=== PATIENT | female | born 1995 | race Caucasian/White ===

== ENCOUNTER 2025-02-16 18:25 | Emergency (ER) | payer OTHER, SELFPAY ==
[2025-02-16 19:00] VITALS: BP 119/67; PULSE 86; RESP 20; TEMP 36.5; O2SAT 98; BMI 21.5
--- NOTE | 2025-02-16 19:00 | ED.SKABFB ---
HPI - Skin/Abscess/Foreign Bdy General Chief complaint: Skin/Abscess/Foreign Body Stated complaint: forhead injury over right eye Time Seen by Provider: 02/16/25 22:26 History of Present Illness ED Provider: Lionel Nick MD HPI narrative: [age] female healthy with dog bite about 3 hours ago just above the right eyebrow minimal bleeding. The dog is a chordee and is fully vaccinated per the patient's mother at the bedside Related Data Previous Rx's ?Medication ?Instructions ?Recorded amoxicillin 875 mg-potassium 1 tab PO BID 7 days #5 tabs 02/16/25 clavulanate 125 mg tablet Allergies Allergy/AdvReac Type Severity Reaction Status Date / Time No Known Allergies (No Known Allergy Verified 02/16/25 19:02 Allergies*) [facility] Social History Social History Advance Directives: No Advance Directives Information Provided: No Physical Exam Exam: Exam: GENERAL: Well appearing. No apparent distress. Alert. HEAD/NECK: No visual trauma. EYES: Normal to inspection. No conjunctival erythema. No discharge. ENMT: Hearing grossly normal. External nose normal. RESPIRATORY: Respiratory effort normal. CARDIOVASCULAR: Additional details (Grossly well perfused). SKIN: No jaundice. NEUROLOGICAL: Alert. Moving all extremities x4. Additional details (No gross motor deficits. Normal tone. ). PSYCHIATRIC: Alert. Appearance appropriate for situation. Skin/face: See photo below there is a flap-like laceration with nearby abrasions. No deep puncture like wounds. Wound is clean no foreign bodies or dirt Vital Signs: Vital Signs: Last Vital Signs Temp 97.7 F 02/16/25 19:00 Pulse 86 02/16/25 19:00 Resp 20 02/16/25 19:00 BP 119/67 02/16/25 19:00 Pulse Ox 98 02/16/25 19:00 O2 Del Method Room Air 02/16/25 19:00 BMI result Body Mass Index 21.5 Course Course Course Narrative: This is a Rapid Medical Exam performed in triage by Mar Cruz PA-C. Full HPI, ROS and PE to be performed by primary ED provider. 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 Patient UTD on vaccinations. Dof UTD on vaccinations PE: +circular laceration noted to L eyebrow Plan: needs suture repair Medications Administered Discontinued Medications Generic Name Dose Route Start Last Admin Trade Name Nohemi PRN Reason Stop Dose Admin Amoxicillin/Clavulanate Potassium 875 mg 02/16/25 22:55 02/16/25 23:38 Amoxicillin/Potassium Clav 875 Mg Tablet PO 02/16/25 22:56 875 mg ONCE ONE Administration Diphtheria/Tetanus/Acell Pertussis 0.5 ml 02/16/25 22:55 02/16/25 23:37 Diphth,Pertus(Acell),Tet Adult 0.5 Ml Syringe IM 02/16/25 22:56 0.5 ml .ONCE ONE Administration Lidocaine HCl 10 ml 02/16/25 22:50 02/16/25 23:38 Lidocaine Hcl 1 % Mpf 5 Ml Vial INFILTRATI 02/16/25 22:51 10 ml ONCE ONE Administration Medical Decision Making Medical Decision Making MDM Narrative: Medical Decision Making: Facial dog bite. Cosmetic area. Shared decision-making regarding risk and benefit of closing dog bite wound versus secondary intention due to infection risk. Patient prefers closure Antibiotic prophylaxis tetanus follow up Preliminary Favored Differential Diagnosis: [ ] among additional considered etiologies Testing Interpreted Independently: ?See below for details Radiology or Lab testing Results Reviewed: ?See below for details Consults: ?See below for details Independent Historians/External Chart Reviews: ?See below for details Social Determinants of Health Impacting MDM/Planning: ?See below for details Procedures Laceration Laceration 1: Site: face Side (If applicable): right Size (cm): 3 Description: flap Local Anesthetic: lidocaine 1% Amount of anesthesia used (mL): 5 Pre-repair: wound explored and irrigated extensively Skin layer closed with: other (Prolene) Size (cm): 6-0 Number of sutures: 5 Technique: simple, interrupted Subcutaneous layer closed with: vicryl Size: 5-0 Number of sutures: 1 Technique: simple interrupted Discharge Plan Discharge Clinical Impression: Laceration of face, Dog bite Patient Disposition: Home, Self-Care Instructions: Animal Bite (ED), Laceration (ED) Additional Instructions: DISCHARGE DIAGNOSES: Dog bite with flap laceration. Repaired HISTORY OF PRESENTATION: ?Dog bite EMERGENCY DEPARTMENT COURSE,TESTS, TREATMENTS: While in the ED today you had a laceration repair with 1 absorbable deep suture and 5 Prolene sutures on the outside of the skin that need to be removed in about 5-6 days you were given a tetanus shot update which should last 10 years unless you have a dirty wound in the future and you were started on antibiotics DISCHARGE MEDICATIONS: ?Augmentin for 5 days FOLLOW-UP: ?Call your primary or general physician soon as possible to discuss your symptoms, your ED visit and to discuss follow up plans Urgent care in 5-6 days for suture removal and wound check INSTRUCTIONS ?& RETURN PRECAUTIONS: If any symptoms change first call your primary physician, if it is after-hours your primary doctors office should have a provider land economist you can speak with. If the symptoms are severe or very concerning to you then call 911 or return to the ED. Lionel Nick MD Emergency Physician [facility] Prescriptions: New amoxicillin-pot clavulanate 875-125 mg tablet 1 tab PO BID 7 Days Qty: 5 0RF Print Language: Indian
[2025-02-16] MEDS: Diphth,Pertus(ACell),Tet Adult 0.5 ML SYRINGE IM (23:37)
[2025-02-16] MEDS: Lidocaine HCl 1 % MPF 5 ML VIAL 10 ML INFILTRATI (23:38)
[2025-02-16 23:49] VITALS: BP 131/86; PULSE 88; RESP 16; TEMP 36.5; O2SAT 98
--- OUTSIDE RECORDS SUMMARY | 2025-02-17 05:20 | XMS_ITS | Encounter Summary ---
Author Organization [facility] Address [address] [place] [address] Phone Care Team Providers Care Seo Intern Name Role Phone Varsha Peña ACADEMIC SPECIALIST Primary Care Provider Meera kennedy Encounter Details Date Type Department Care Team (Late st Contact Info) Description 09/12/2011 [place] [facility] [place] [address] [place], [place] [phone] Family Medicine, Physician [address] [place] [address] Social History Tobacco Use Types Packs/Day Years Used Date Smoking Tobacco: Never Assessed Comments Unknown Sex and Gender Information Value Date Recorded Sex Assigned at Not on file Legal Sex Female 4:47 PM EDT Gender Identity Not on file Sexual Orientation Not on file documented as of this encounter Plan of Treatment Not on file documented as of this encounter Visit Diagnoses Not on filedocumented in this encounter Care Teams Seo Intern Relationship Specialty Start Date End Date Varsha Peña NP PCP - General 11/08/16 09/04/22 documented as of this encounter
--- OUTSIDE RECORDS SUMMARY | 2025-02-17 05:20 | XMS_ITS | Encounter Summary ---
Author Organization [facility] Address [address] [place] [address] Phone Care Team Providers Care Payroll Machine Operator Name Role Phone Varsha Peña MANAGER MEETING Primary Care Provider Meera kennedy Encounter Details Date Type Department Care Team (Late st Contact Info) Description 11/22/2010 Documentation [facility] [place] Family Medicine [address] [place], [place] [phone] Family Medicine, Physician [address] [place] [address] Social History Tobacco Use Types Packs/Day Years [...] on filedocumented in this encounter Care Teams Payroll Machine Operator Relationship Specialty Start Date End Date Varsha Peña NP PCP - General 11/08/16 09/04/22 documented as of this encounter
--- OUTSIDE RECORDS SUMMARY | 2025-02-17 05:20 | XMS_ITS | Encounter Summary ---
Author Organization [facility] Address [address] [place] [address] Phone Care Team Providers Care Department Sales Manager Name Role Phone Varsha Peña PIPELINER Primary Care Provider Meera kennedy Encounter Details Date Type Department Care Team (Late st Contact Info) Description 10/21/2012 Documentation [facility] [place] Family Medicine [address] [place], [place] [phone] Family Medicine, Physician [address] [place] [address] Social History Tobacco Use Types Packs/Day Years [...] on filedocumented in this encounter Care Teams Department Sales Manager Relationship Specialty Start Date End Date Vrasha Peña NP PCP - General 11/08/16 09/04/22 documented as of this encounter
--- OUTSIDE RECORDS SUMMARY | 2025-02-17 05:20 | XMS_ITS | Encounter Summary ---
Author Organization [facility] Address [address] [place] [address] Phone Care Team Providers Care Associate Vice President Name Role Phone Varsha Peña ROLL WEIGHER Primary Care Provider Meera kennedy Encounter Details Date Type Department Care Team (Late st Contact Info) Description 09/24/2010 [place] [facility] [place] [address] [place], [place] [phone] Family Medicine, Physician [address] [place] [address] Social History Tobacco Use Types Packs/Day Years [...] on filedocumented in this encounter Care Teams Associate Vice President Relationship Specialty Start Date End Date Varsha Peña NP PCP - General 11/08/16 09/04/22 documented as of this encounter
--- OUTSIDE RECORDS SUMMARY | 2025-02-17 05:20 | XMS_ITS | Encounter Summary ---
Author Organization [facility] Address [address] [place] [address] Phone Care Team Providers Care Reinforced Steel Placing Supervisor Name Role Phone Varsha Peña ASBESTOS WORKER HELPER Primary Care Provider Meera kennedy Encounter Details Date Type Department Care Team (Late st Contact Info) Description 11/22/2010 [place] [facility] [place] [address] [place], [place] [phone] Family Medicine, Physician [address] [place] [address] Social History Tobacco Use Types Packs/Day Years [...] on filedocumented in this encounter Care Teams Reinforced Steel Placing Supervisor Relationship Specialty Start Date End Date Varsha Peña NP PCP - General 11/08/16 09/04/22 documented as of this encounter
--- OUTSIDE RECORDS SUMMARY | 2025-02-17 05:20 | XMS_ITS | Patient Health Record ---
Demographics Address [address] [place] [address] Mobile Email Address Preferred Language en Marital Status unmarried Moravian Affiliation Unknown Race Unknown Ethnic Group or Author Organization [facility] Address [address] [place] [address] Care Team Providers Care Manager Operational Name Role Phone Marianela Guerrero Primary Care Provider Unavailab Christian Quinn Unavailable [phone] Reason For Referral No Information Medications Medication SIG (Take, Route, Frequency, Duration) Notes Start Date End Date Status Omeprazole 20 MG Capsule Delayed Release 1 capsule Orally BID; Duration: 10 days 09/25/2017 Not-Taking/PRN Biaxin 500 MG Tablet 1 tablet Orally santy ry 12 hrs; Duration: 10 day(s) 09/25/2017 Not-Taking/PRN Dicyclomine HCl 10 MG Capsule 1-2 capsules Orally TID before meals to prevent diarrhea; Duration: 30 day(s) 03/12/2018 Active Dicyclomine HCl 10 MG Capsule 1-2 capsules Orally Four times a day prn abdominal cramps, discomfort, loose BM's; Duration: 30 day(s) 09/27/2017 Not-Taking/PRN Famotidine 20 MG Tablet 1 tablet at bedt ajit Orally Once a day; Duration: 30 day(s) 03/12/2018 Active Immunizations Vaccine Route Administration Date Status Comme nts Influenza Unknown 03/12/2018 Refused Social History Tobacco Use: Social History Observation Description Date Details (start date - stop date) Never Smoker NA - NA Social History Drugs/Alcohol: Social Info Question Answer Notes Alcohol Screen Did you have a drink containing alcohol in the past year? Yes How often did you have a drink containing alcohol in the past year? Monthly or less (1 point) How many drinks did you have on a typical day when you were drinking in the past year? 5 or 6 drinks (2 points) How often did you have 6 or more drinks on one occasion in the past year? Less than monthly (1 point) Points 4 Interpretation Positive Tobacco Use: Social Info Question Answer Notes Tobacco Use/Smoking Patient is a nonsmoker Additional Details Category Social Info Options Details Miscellaneous: Marital status: single Occupation: dental automotive service assistant . Section Notes: Nonsmoker; occ. alcohol Nonsmoker; occ. alcohol Nonsmoker; occ. alcohol Problems Problem Type SNOMED Code ICD Code Onset Dates Problem Status W/U Status Risk Notes Problem Gastroduodenitis (456217493) Gastritis, unspecified, without bleeding (K29.70) Active confirmed Problem Nausea (655670764) Nausea (R11.0) Active confir med Problem Early satiety (047908601) Early satiety (R68.81) Active confirmed Problem H. Pylori (24977070) Helicobacter pylori (H. pylori) infection (A04.8) Active confirmed Problem Vitamin B12 deficiency (105734029) Vitamin B12 deficiency (E53.8) Active confirmed Problem Duodenal ulcer (09114950) Duodenal ulcer (K26.9) Active confirmed Problem Diarrhea (28122245) Diarrhea, unspecified type (R19.7) Active confirmed Problem Helicobacter pylori (45799289) Helicobacter pylori (H. pylori) (A04.8) Active confirmed Problem Lower abdominal pain (21019633) Lower abdominal pain (R10.30) Active confirmed Plan Of Treatment Pending Test Test Name Order Date CBC w DIFF 03/12/2018 INTRINSIC FACTOR ANTIBODIES 09/27/2017 PARIETAL CELL ANTIBODY 09/27/2017 Future Test Test Name Order Date UPPER GI ENDOSCOPY 02/05/2017 Medical (General) History Medical History History ICD Code Denies [place],DM,CVA,Lung disease,renal dise ase Negative abdominal ultrasound 2014 Upper endoscopy in January of 2017--minimal hiatal hernia, duodenitis and small duodenal bulb healing ulcers, gastritis with associated H. pylori, normal duodenal biopsies without any evidence of celiac disease--she was given prescriptions for omeprazole, Biaxin, and amoxicillin in August 2017 Vitamin B12 deficiency of 124 in 08/2017 Low-normal Ferritin of 22 in 08/2017 Normal small bowel series in October 018
--- OUTSIDE RECORDS SUMMARY | 2025-02-17 05:20 | XMS_ITS | Encounter Summary ---
Author Organization [facility] Address [address] [place] [address] Phone Care Team Providers Care Jewel Lathe Operator Name Role Phone Varsha Peña PACKAGER AND STRAPPER Primary Care Provider Meera kennedy Encounter Details Date Type Department Care Team (Late st Contact Info) Description 09/12/2011 Documentation [facility] [place] Family Medicine [address] [place], [place] [phone] Family Medicine, Physician [address] [place] [address] Social History Tobacco Use Types Packs/Day Years [...] on filedocumented in this encounter Care Teams Jewel Lathe Operator Relationship Specialty Start Date End Date Varsha Peña NP PCP - General 11/08/16 09/04/22 documented as of this encounter
--- OUTSIDE RECORDS SUMMARY | 2025-02-17 05:20 | XMS_ITS | Encounter Summary ---
Author Organization [facility] Address [address] [place] [address] Phone Care Team Providers Care Investment Underwriter Name Role Phone Varsha Peña EMBROIDERER Primary Care Provider Meera kennedy Encounter Details Date Type Department Care Team (Late st Contact Info) Description 09/24/2010 Documentation [facility] [place] Family Medicine [address] [place], [place] [phone] Family Medicine, Physician [address] [place] [address] Social History Tobacco Use Types Packs/Day Years [...] on filedocumented in this encounter Care Teams Investment Underwriter Relationship Specialty Start Date End Date Varsha Peña NP PCP - General 11/08/16 09/04/22 documented as of this encounter
--- OUTSIDE RECORDS SUMMARY | 2025-02-17 05:20 | XMS_ITS | Encounter Summary ---
Author Organization [facility] Address [address] [place] [address] Phone Care Team Providers Care Diesel Service Technician Name Role Phone Varsha Peña VP SOFTWARE SUPPORT Primary Care Provider Meera kennedy Encounter Details Date Type Department Care Team (Late st Contact Info) Description 02/25/2012 Documentation [facility] [place] Family Medicine [address] [place], [place] [phone] Family Medicine, Physician [address] [place] [address] Social History Tobacco Use Types Packs/Day Years [...] on filedocumented in this encounter Care Teams Diesel Service Technician Relationship Specialty Start Date End Date Varsha Peña NP PCP - General 11/08/16 09/04/22 documented as of this encounter
--- OUTSIDE RECORDS SUMMARY | 2025-02-17 05:20 | XMS_ITS | Encounter Summary ---
Author Organization [facility] Address [address] [place] [address] Phone Care Team Providers Care Health Club Attendant Name Role Phone Varsha Peña AIRBORNE SENSOR SPECIALIST Primary Care Provider Meera kennedy Encounter Details Date Type Department Care Team (Late st Contact Info) Description 10/21/2012 Documentation [place] Family Medicine [address] [place], [place] [phone] Family Medicine, Physician [address] [place] [address] Social History Tobacco Use Types Packs/Day Years [...] on filedocumented in this encounter Care Teams Health Club Attendant Relationship Specialty Start Date End Date Varsha Peña NP PCP - General 11/08/16 09/04/22 documented as of this encounter
--- OUTSIDE RECORDS SUMMARY | 2025-02-17 05:20 | XMS_ITS | Encounter Summary ---
Author Organization [facility] Address [address] [place] [address] Phone Care Team Providers Care Amusement Or Recreation Card Checker Name Role Phone Varsha Peña SLIVER LAP MACHINE TENDER Primary Care Provider Meera kennedy Encounter Details Date Type Department Care Team (Late st Contact Info) Description 09/12/2011 [place] [facility] [place] [address] [place], [place] [phone] Family Medicine, Physician [address] [place] [address] Social History Tobacco Use Types Packs/Day Years [...] on filedocumented in this encounter Care Teams Amusement Or Recreation Card Checker Relationship Specialty Start Date End Date Varsha Peña NP PCP - General 11/08/16 09/04/22 documented as of this encounter
--- OUTSIDE RECORDS SUMMARY | 2025-02-17 05:20 | XMS_ITS | Encounter Summary ---
Author Organization [facility] Address [address] [place] [address] Phone Care Team Providers Care Coffin Maker Name Role Phone Varsha Peña FLEXOGRAPHIC PRESS OPERATOR Primary Care Provider Meera kennedy Encounter Details Date Type Department Care Team (Late st Contact Info) Description 10/21/2012 Documentation [facility] [place] Family Medicine [address] [place], [place] [phone] Family Medicine, Physician [address] [place] [address] Social History Tobacco Use Types Packs/Day Years [...] on filedocumented in this encounter Care Teams Coffin Maker Relationship Specialty Start Date End Date Varsha Peña NP PCP - General 11/08/16 09/04/22 documented as of this encounter
--- OUTSIDE RECORDS SUMMARY | 2025-02-17 05:20 | XMS_ITS | Encounter Summary ---
Author Organization [facility] Address [address] [place] [address] Phone Care Team Providers Care Food Operations Manager Name Role Phone Varsha Peña REAL ESTATE UTILIZATION OFFICER Primary Care Provider Meera kennedy Encounter Details Date Type Department Care Team (Late st Contact Info) Description 09/24/2010 [place] [facility] [facility] [place] [address] [place], [place] [phone] Family Medicine, Physician [address] [place] [address] Social History Tobacco Use Types Packs/Day Years [...] on filedocumented in this encounter Care Teams Food Operations Manager Relationship Specialty Start Date End Date Varsha Peña NP PCP - General 11/08/16 09/04/22 documented as of this encounter
--- OUTSIDE RECORDS SUMMARY | 2025-02-17 05:20 | XMS_ITS | Encounter Summary ---
Author Organization [facility] Address [address] [place] [address] Phone Care Team Providers Care Manager Fine Name Role Phone Varsha Peña ELECTRICAL SIGN WIRER Primary Care Provider Meera kennedy Encounter Details Date Type Department Care Team (Late st Contact Info) Description 09/12/2011 [place] [facility] [place] [address] [place], [place] [phone] Family Medicine, Physician [address] [place] [address] Social History Tobacco Use Types Packs/Day Years [...] on filedocumented in this encounter Care Teams Manager Fine Relationship Specialty Start Date End Date Varsha Peña NP PCP - General 11/08/16 09/04/22 documented as of this encounter
--- OUTSIDE RECORDS SUMMARY | 2025-02-17 05:20 | XMS_ITS | Encounter Summary ---
Author Organization [facility] Address [address] [place] [address] Phone Care Team Providers Care Peer Specialist Name Role Phone Varsha Peña NP Primary Care Provider Meera kennedy Encounter Details Date Type Department Care Team (Late st Contact Info) Description 11/14/2016 Conversion Encounter [facility] - [address] [address] Social History Tobacco Use Types Packs/Day Years Used Date Smoking Tobacco: Never Comments:Never smoker Comments Unknown Sex and Gender Information Value Date Recorded Sex Assigned at Not on file Legal Sex Female 4:47 PM EDT Gender Identity Not on file Sexual Orientation Not on file documented as of this encounter Plan of Treatment Not on file documented as of this encounter Visit Diagnoses Not on filedocumented in this encounter Care Teams Peer Specialist Relationship Specialty Start Date End Date Varsha Peña NP PCP - General 11/08/16 09/04/22 documented as of this encounter
--- OUTSIDE RECORDS SUMMARY | 2025-02-17 05:20 | XMS_ITS | Clinical Summary ---
Author Organization [facility] Address [address] [place] [phone] Phone Care Team Providers Care Dictating Machine Mechanic Name Role Phone Unavailable Primary Care Provider Unavailabl e Immunizations Immunization Administration Dates Next Due DTaP 5 12/18/1999, 7,1995, 996,1995 HPV, Quadrivalent 10/20/2012,09/11/2011,09/22/19 11 Hep A, ped/adol 09/21/2010 Hep B, ped/adol 1995,1995,1995 Hib (PRP-T) 02/24/1996, 6,1995, 996 IPV 12/18/1999, 6,1995, 996 Influenza Split 11/21/2010 Influenza, injectable, trivalent 05/03/2008 MMR 12/26/1998,02/24/1996 Meningococcal Conj (Menactra) MCV4P 01/08/2007 Tdap 01/08/2007 Varicella 09/11/2009,09/10/1996 Family History Relation Name Status Comments Brother Alive Brother: Alive and well Father Alive Father: Alive a nd well Mother Alive Mother: Alive a nd well Other Family history of Asthma Social History Tobacco Use Types Packs/Day Years Used Date Smoking Tobacco: Never Comments:Never smoker Comments Unknown Sex and Gender Information Value Date Recorded Sex Assigned at Not on file Legal Sex Female 4:47 PM EDT Gender Identity Not on file Sexual Orientation Not on file Last Filed Vital Signs Vital Sign Reading Time Taken Comments Blood Pressure 90/60 10/20/2012 12:00 AM EDT Pulse 60 09/24/2012 12:00 AM EDT Temperature 36.3 C (97.4 F) 09/24/2012 12:00 AM EDT Respiratory Rate - - Oxygen Saturation 98% 09/24/2012 12:00 AM EDT Inhaled Oxygen Concentration - - Weight 39 kg (86 lb) 10/20/2012 12:00 AM EDT Height 151.1 cm (4' 11.5 ) 10/20/2012 12:00 AM E DT Body Mass Index 17.08 10/20/2012 12:00 AM EDT Plan of Treatment Health Maintenance Due Date Last Done Comments Hepatitis A Vaccines (2 of 2 - 2-dose series) 03/23/2011 09/21/2010 DTaP,Tdap,and Td Vaccines (7 - Td or Tdap) 01/08/2017 01/08/2007, 12/18/1999, 09/10/1996, Additional history exists Influenza Vaccines (#1) 2024 11/21/2010, 05/03 COVID-19 Vaccine ( season) 2024 Hepatitis B Vaccines Completed 1995, 1995, 1995 HIB Vaccines Completed 02/24/1996, 06/1995, 1995, Additional history exists MMR Vaccines Completed 12/26/1998, 02/24/1996 IPV Vaccines Completed 12/18/1999, 06/1995, 1995, Additional history exists Meningococcal Vaccine Aged Out 01/08/2007 No hebert jagruti eligible based on patient's age to complete this topic Varicella Vaccines Completed 09/11/2009, 09/10/1996 HPV Vaccines Completed 10/20/2012, 08/29, 09/21/2010 Men B Vaccine Aged Out No longer elig ible based on patient's age to complete this topic Pneumococcal Vaccine Aged Out No long er eligible based on patient's age to complete this topic
== END 2025-02-16 23:49 | disposition home or self-care (01) ==
PROVIDERS: Emergency Provider Emergency Medicine
DX: S01.151A Open bite of right eyelid and periocular area, initial encounter (principal); W54.0XXA Bitten by dog, initial encounter; Y93.9 Activity, unspecified; Y92.9 Unspecified place or not applicable; Z23 Encounter for immunization
CPT/HCPCS: 12013; 90471; 90715; 99282; 99283; J2003